=== PATIENT | male | born 1975 | race Caucasian/White ===

== ENCOUNTER 2019-08-11 12:55 | Emergency (ER) | payer OTHER ==
--- NOTE | 2019-08-11 14:53 | ED ---
Lower Extremity - HPI Summary HPI Summary: 43-year-old male presents with knee pain since last night. He states that he ended up twisting his knee. Has a previous pin placed in his knee due to not having ligaments in the knee. He states it feels like his knee is give out. Denies any numbness tingling. Pain is greatest over the lateral aspect of the knee. Denies any fevers. No redness to the area. Has also previous hardware placement into his femur. - History of Current Complaint Chief Complaint: EDExtremityLower Stated Complaint: FALL RIGHT KNEE PAIN Time Seen by Provider: 08/11/19 14:27 Pain Intensity: 8 - Allergies/Home Medications Allergies/Adverse Reactions: Allergies Allergy/AdvReac Type Severity Reaction Status Date / Time No Known Allergies Allergy Verified 08/11/19 13:02 PMH/Surg Hx/FS Hx/Imm Hx Endocrine/Hematology History: Denies: Hx Anticoagulant Therapy Respiratory History: Denies: Hx Asthma Infectious Disease History: No Infectious Disease History: Denies: Traveled Outside the [place] in Last 30 Days - Social History Substance Use Type: Reports: None Smoking Status (MU): Unknown if Ever Smoked Review of Systems Negative: Fever Negative: Chest Pain Negative: Shortness Of Breath Positive: Myalgia - right knee pain All Other Systems Reviewed And Are Negative: Yes Physical Exam Triage Information Reviewed: Yes Vital Signs On Initial Exam: Initial Vitals Temp Pulse Resp BP Pulse Ox 97.6 F 62 15 132/79 97 08/11/19 12:59 08/11/19 12:59 08/11/19 12:59 08/11/19 12:59 08/11/19 12:59 Vital Signs Reviewed: Yes Appearance: Positive: Well-Appearing Skin: Positive: Warm, Dry Head/Face: Positive: Normal Head/Face Inspection Eyes: Positive: Normal, Conjunctiva Clear ENT: Positive: Pharynx normal Respiratory/Lung Sounds: Positive: Clear to Auscultation, Breath Sounds Present Cardiovascular: Positive: Normal, RRR Musculoskeletal: Positive: Limited @ - right knee due to pain, Other - tenderness over right patella, good pulses, laxity noted to joint, pain with knee flexed greater than 90 degree Neurological: Positive: Normal Psychiatric: Positive: Normal Procedures - Sedation Patient Received Moderate/Deep Sedation with Procedure: No Diagnostics - Vital Signs Vital Signs Temp Pulse Resp BP Pulse Ox 08/11/19 12:59 97.6 F 62 15 132/79 97 - Laboratory Lab Statement: Any lab studies that have been ordered have been reviewed, and results considered in the medical decision making process. - Radiology knee Radiology Interpretation Completed By: Radiologist Summary of Radiographic Findings: IMPRESSION: Internal fixation distal femur fracture from prior injury. No recent fracture is noted. Lower Extremity Course/Dx - Course Course Of Treatment: 43-year-old male presents with knee pain since last night. He states that he ended up twisting his knee. Has a previous pin placed in his knee due to not having ligaments in the knee. He states it feels like his knee is give out. Denies any numbness tingling. Pain is greatest over the lateral aspect of the knee. Denies any fevers. No redness to the area. Has also previous hardware placement into his femur. On exam tenderness of her right knee. Neurovascular intact. No sign of septic joint on exam. X-ray shows no fracture or hardware failure. gave knee immobilizer. We'll have follow -up with orthopedic. Patient understands agrees with plan. - Diagnoses Differential Diagnosis/HQI/PQRI: Positive: Foreign Body, Sprain, Strain Provider Diagnoses: Right knee pain Discharge ED - Sign-Out/Discharge Documenting (check all that apply): Patient Departure - Discharge Plan Condition: Good Disposition: HOME Patient Education Materials: Knee Pain (ED) Referrals: Juan J LI,Adrienne Miller [Primary Care Provider] - Shun García MD [Medical Doctor] - Additional Instructions: Use immobilizer Stay off knee as much as possible Ice, elevate, Ibuprofen or Tylenol every 6 hours for pain Follow up with ortho Return to ED if develop or any new or worsening symptoms - Billing Disposition and Condition Condition: GOOD Disposition: Home
[2019-08-11 15:35] VITALS: BP 120/81
== END 2019-08-11 15:30 | disposition home or self-care (01) ==
LOC: ED 12:55
DX: M25.561 Pain in right knee (principal)
CPT/HCPCS: 99282